=== PATIENT | female | born 1945 | race Native Hawaiian/Other Pacific Islander ===

== ENCOUNTER 2017-07-07 07:59 | Outpatient (CLI) | payer OTHER | END 2017-07-07 09:00 | disposition home or self-care (01) | LOC: RAD 07:59 | DX: M81.0 Age-related osteoporosis without current pathological fracture (principal) ==

== ENCOUNTER 2019-04-08 10:42 | Outpatient (CLI) | payer OTHER | END 2019-04-08 20:18 | disposition home or self-care (01) | LOC: MAMMO 10:42 | DX: Z12.31 Encounter for screening mammogram for malignant neoplasm of breast (principal) ==